=== PATIENT | female | born 1995 | race Caucasian/White ===

== ENCOUNTER 2017-02-25 13:50 | Emergency (ER) | payer OTHER ==
[~2017-02-25] VITALS: Ht 157.5 cm; Wt 118.4 kg
[2017-02-25] MEDS ORDERED: PRENTAB55 PO (14:11)
[2017-02-25] MEDS ORDERED: ONDANSETRON 4 MG ORAL DISINTEGRATING TAB (S0181) PO ONE (15:15)
[2017-02-25] MEDS ORDERED: ACETAMINOPHEN TAB 650MG DOSE (2X325MG) PO ONE (15:15)
[2017-02-25 15:57] LABS: BASO % 0.6 % (0.0-1.0); EOS # 0.1 K/mm3 (0.0-0.50); EOS % 1.9 % (0.0-3.0); LARGE UNSTAINED CELL # 0.1 K/mm3 (0.0-0.4); LARGE UNSTAINED CELL % 1.5 % (0.0-4.0); LYMPH # 2.2 K/mm3 (1.5-6.5); LYMPH % 30.3 % (24.0-44.0); MEAN CORPUSCULAR HEMOGLOBIN 28.1 pg (27.0-33.0); MEAN CORPUSCULAR HGB CONC 32.9 g/dl (32.0-36.5); MEAN CORPUSCULAR VOLUME 85.3 fl (80.0-96.0); MONO # 0.4 K/mm3 (0.0-0.8); MONO % 5.3 % (0.0-5.0); NEUTROPHILS # 4.4 K/mm3 (1.8-7.7); NEUTROPHILS % 60.4 % (36.0-66.0); PLATELET COUNT, AUTOMATED 282 k/mm3 (150-450); RED CELL DISTRIBUTION WIDTH 12.5 % (11.5-14.5); WHITE BLOOD COUNT 7.2 K/mm3 (4.0-10.0)
[2017-02-25 17:02] VITALS: BP 141/83
--- NOTE | 2017-02-26 08:52 | REP ---
OB ULTRASOUND: HISTORY: Cramping. Within the uterus, there is an anechoic structure with increased echo surrounding it consistent with a decidual reaction. Within the gestational sac there is echogenic material consistent with a pole, the mean crown rump length measurement of which is consistent with a 5 week 6 day gestational age. Based on that the estimated date of delivery is 10/22/2017. Doppler interrogation of the heart shows a heart rate of 120 beats per minute. Evaluation of the maternal adnexal spaces show no gross abnormalities. No chorionic or subchorionic abnormality was noted. IMPRESSION: Early OB ultrasound as described above. Signed by Kalyan Orourke DO 02/26/2017 09:58 A
== END 2017-02-25 17:04 | disposition home or self-care (01) ==
LOC: M ED 14:59
DX: O99.89 Other specified diseases and conditions complicating pregnancy, childbirth and the puerperium (principal); R10.9 Unspecified abdominal pain; Z3A.00 Weeks of gestation of pregnancy not specified
CPT/HCPCS: 76801; 76817; 81001; 84702; 85025; 86850; 86900; 86901; 87210; 87491; 87591; 93976; 99282; G0463

== ENCOUNTER → 2017-02-25 | Outpatient (REF) | payer OTHER ==
[~2017-02-25] MED LIST: PRENTAB55 PO
== END ==
LOC: M SFHCLERA 12:56
PROVIDERS: ATTEND Nurse Practitioner Family
DX: R35.8 Other polyuria (principal)

== ENCOUNTER → 2017-03-13 | Outpatient (CLI) | payer OTHER ==
[2017-03-13 15:07] LABS: BASO % 0.5 % (0.0-1.0); EOS # 0.1 K/mm3 (0.0-0.50); EOS % 1.4 % (0.0-3.0); LARGE UNSTAINED CELL # 0.1 K/mm3 (0.0-0.4); LARGE UNSTAINED CELL % 1.5 % (0.0-4.0); LYMPH # 2.2 K/mm3 (1.5-6.5); LYMPH % 31.5 % (24.0-44.0); MEAN CORPUSCULAR HEMOGLOBIN 28.5 pg (27.0-33.0); MEAN CORPUSCULAR HGB CONC 33.6 g/dl (32.0-36.5); MEAN CORPUSCULAR VOLUME 84.8 fl (80.0-96.0); MONO # 0.4 K/mm3 (0.0-0.8); MONO % 5.8 % (0.0-5.0); NEUTROPHILS # 4.1 K/mm3 (1.8-7.7); NEUTROPHILS % 59.4 % (36.0-66.0); PLATELET COUNT, AUTOMATED 274 k/mm3 (150-450); RED CELL DISTRIBUTION WIDTH 12.7 % (11.5-14.5)
[2017-03-14 08:34] LABS: ALT/SGPT 31 U/L (12-78); AST/SGOT 19 U/L (15-37); BILIRUBIN,TOTAL 0.2 MG/DL (0.2-1.0); CREATININE FOR GFR 0.72 MG/DL (0.55-1.02); URIC ACID 4.9 MG/DL (2.6-6.0)
[2017-03-14 08:35] LABS: HBsAg Prenatal NEGATIVE (NEGATIVE)
== END ==
LOC: M LRY 11:30
PROVIDERS: ATTEND Advanced Practice Midwife
DX: Z34.81 Encounter for supervision of other normal pregnancy, first trimester (principal)

== ENCOUNTER 2017-04-02 19:04 | Emergency (ER) | payer OTHER ==
[~2017-04-02] VITALS: Ht 157.5 cm; Wt 116.6 kg
[2017-04-02 20:21] LABS: BASO % 0.5 % (0.0-1.0); EOS # 0.2 K/mm3 (0.0-0.50); EOS % 2.2 % (0.0-3.0); LARGE UNSTAINED CELL # 0.2 K/mm3 (0.0-0.4); LARGE UNSTAINED CELL % 1.8 % (0.0-4.0); LYMPH % 33.6 % (24.0-44.0); MEAN CORPUSCULAR HEMOGLOBIN 28.5 pg (27.0-33.0); MEAN CORPUSCULAR VOLUME 81.3 fl (80.0-96.0); MONO # 0.3 K/mm3 (0.0-0.8); NEUTROPHILS # 4.8 K/mm3 (1.8-7.7); NEUTROPHILS % 57.8 % (36.0-66.0); PLATELET COUNT, AUTOMATED 268 k/mm3 (150-450); RED CELL DISTRIBUTION WIDTH 12.7 % (11.5-14.5); WHITE BLOOD COUNT 8.4 K/mm3 (4.0-10.0)
[2017-04-02] MEDS ORDERED: RHOGAM 300 MCG (1500 IU) INJ (J2790) IM SCH (21:15)
--- NOTE | 2017-04-02 21:30 | REPUSA ---
CLINICAL HISTORY: Abdominal pain. TECHNIQUE: Realtime sonographic images were obtained in multiple projections. COMMENTS: A single, living, intrauterine was identified utilizing transabdominal imaging technique. The estimated gestational age is 11 weeks 0 days, based on a pole measurement of 42 mm. The fe chanelle heart rate was documented at 158 bpm. Based on today's examination, the estimated date of delive ry is 10/22/2017. A small subchorionic hemorrhage was identified measuring 2.2 x 0.8 x 3.4 cm. Evaluation of the maternal adnexal and cul-de-sac regions revealed a right ovarian cyst, likely a cor pus luteum measuring 2.8 x 2.1 x 2.4 cm. Although a complete anatomical survey is not possible at this gestational age, no gross anomali es were identified. A repeat scan at 19-20 weeks for a detailed anatomical survey is recommended. IMPRESSION: 1. Single, live, intrauterine gestation, 11 weeks 0 days based on today's crown/rump length. 2. Small subchorionic hemorrhage. 3. Based on today's examination, the estimated date of delivery is 10/22/2017. Thank you for your kind referral of this patient. We appreciate the opportunity to participate in thi s patient's care.
[2017-04-02 23:03] VITALS: BP 145/91
== END 2017-04-02 23:25 | disposition home or self-care (01) ==
LOC: M ED 20:13
DX: O20.0 Threatened abortion (principal); O20.8 Other hemorrhage in early pregnancy; Z87.891 Personal history of nicotine dependence; Z3A.11 11 weeks gestation of pregnancy; Z79.899 Other long term (current) drug therapy
CPT/HCPCS: 36415; 76801; 84702; 85025; 86850; 86900; 86901; 93976; 96372; 99283; J2790

== ENCOUNTER 2017-04-09 22:49 | Emergency (ER) | payer OTHER ==
[~2017-04-09] VITALS: Ht 157.5 cm; Wt 118.0 kg
[2017-04-10 01:17] LABS: BASO % 0.4 % (0.0-1.0); EOS # 0.1 K/mm3 (0.0-0.50); EOS % 1.5 % (0.0-3.0); LARGE UNSTAINED CELL # 0.1 K/mm3 (0.0-0.4); LARGE UNSTAINED CELL % 1.7 % (0.0-4.0); LYMPH # 2.3 K/mm3 (1.5-6.5); LYMPH % 32.7 % (24.0-44.0); MEAN CORPUSCULAR HEMOGLOBIN 27.9 pg (27.0-33.0); MEAN CORPUSCULAR HGB CONC 33.8 g/dl (32.0-36.5); MEAN CORPUSCULAR VOLUME 82.4 fl (80.0-96.0); MONO # 0.4 K/mm3 (0.0-0.8); MONO % 5.8 % (0.0-5.0); PLATELET COUNT, AUTOMATED 258 k/mm3 (150-450); RED CELL DISTRIBUTION WIDTH 12.5 % (11.5-14.5); WHITE BLOOD COUNT 6.9 K/mm3 (4.0-10.0)
--- NOTE | 2017-04-10 02:40 | REPUSA ---
CLINICAL HISTORY: Vaginal bleeding. TECHNIQUE: Transabdominal ultrasound of the pelvis was performed. FINDINGS: Single, live intrauterine gestation. The estimated gestation age is 12 weeks and 3 days. [place]-rump length 5.9 cm. heart rate 162 beats per minute. Anterior placenta. No evidence of placental previa. Right corpus lithium cyst measuring 2.7x2.5x2 cm. Estimated delivery date on 10/20/2017. IMPRESSION: Single, live intrauterine gestation.
[2017-04-10 04:24] VITALS: BP 127/79
== END 2017-04-10 04:26 | disposition home or self-care (01) ==
LOC: M ED 23:55
DX: O20.0 Threatened abortion (principal); O26.892 Other specified pregnancy related conditions, second trimester; N83.11 Corpus luteum cyst of right ovary; Z79.899 Other long term (current) drug therapy; Z3A.12 12 weeks gestation of pregnancy

== ENCOUNTER 2017-04-17 17:55 | Emergency (ER) | payer OTHER ==
[~2017-04-17] VITALS: Ht 157.5 cm; Wt 115.7 kg
[2017-04-17 19:09] LABS: MEAN CORPUSCULAR HGB CONC 34.1 g/dl (32.0-36.5); MEAN CORPUSCULAR VOLUME 82.1 fl (80.0-96.0); RED CELL DISTRIBUTION WIDTH 12.8 % (11.5-14.5); WHITE BLOOD COUNT 8.1 K/mm3 (4.0-10.0)
--- NOTE | 2017-04-17 19:44 | REP ---
Clinical: Pelvic pain and vaginal spotting. Dating and viability. Technique: Transabdominal first trimester obstetrical ultrasound with color Doppler evaluation. Comparison: 04/10/2017 Findings: Single live early intrauterine is appreciated. [place]-rump length of 6.3 cm corresponds to 12 weeks 5 days gestational age with estimated date of delivery 10/25/2017. heart rate equals 153 beats per minute. No gross abnormalities are identified. Anterior grade 0 placenta. Normal maternal right ovary. Right ovary measures 4.4 x 4.1 x 2.5 cm with 3.1 cm corpus luteal cyst; RI equal 0.54. Impression: Single live early intrauterine at 12 weeks 5 days gestational age. Complete anatomical assessment should be performed and 19-20 weeks. Signed by Olivier Baugh MD 04/17/2017 07:36 P
[2017-04-17 19:57] VITALS: BP 130/86
== END 2017-04-17 20:06 | disposition home or self-care (01) ==
LOC: M ED 18:50
DX: O20.9 Hemorrhage in early pregnancy, unspecified (principal); O99.211 Obesity complicating pregnancy, first trimester; E66.01 Morbid (severe) obesity due to excess calories; Z3A.13 13 weeks gestation of pregnancy

== ENCOUNTER → 2018-01-08 | Outpatient (REF) | payer OTHER | LOC: M LAB REF 16:55 | DX: R35.0 Frequency of micturition (principal) | CPT/HCPCS: 87086 ==

== ENCOUNTER → 2018-01-08 | Outpatient (CLI) | payer OTHER ==
[2018-01-08 21:06] LABS: HEMATOCRIT 40.4 % (36.0-47.0); HEMOGLOBIN 13.4 g/dl (12.0-16.0); MEAN CORPUSCULAR HEMOGLOBIN 27.4 pg (27.0-33.0); MEAN CORPUSCULAR HGB CONC 33.2 g/dl (32.0-36.5); MEAN CORPUSCULAR VOLUME 82.6 fl (80.0-96.0); PLATELET COUNT, AUTOMATED 251 10^3/uL (150-450); RED BLOOD COUNT 4.89 10^6/uL (4.00-5.40)
[2018-01-08 21:28] LABS: FOLLICLE STIMULATING HORMONE 3.3 mIU/mL; LUTEINIZING HORMONE 4.9 mIU/mL; TOTAL 25(OH) VITAMIN D 19.3 NG/ML (30.0-100.0)
[2018-01-08 21:31] LABS: ALBUMIN 3.7 GM/DL (3.2-5.2); ALBUMIN/GLOBULIN RATIO 1.09 (1.00-1.93); ALKALINE PHOSPHATASE 71 U/L (45-117); ALT/SGPT 30 U/L (12-78); ANION GAP 6 MEQ/L (8-16); AST/SGOT 24 U/L (7-37); BILIRUBIN,TOTAL 0.4 MG/DL (0.2-1.0); BLOOD UREA NITROGEN 12 MG/DL (7-18); CALCIUM LEVEL 8.8 MG/DL (8.5-10.1); CARBON DIOXIDE LEVEL 28 MEQ/L (21-32); CHLORIDE LEVEL 107 MEQ/L (98-107); CREATININE FOR GFR 0.75 MG/DL (0.55-1.30); GLUCOSE, FASTING 85 MG/DL (70-100); POTASSIUM SERUM 3.9 MEQ/L (3.5-5.1); SODIUM LEVEL 141 MEQ/L (136-145); TESTOSTERONE 45 NG/DL (14-76); TOTAL PROTEIN 7.1 GM/DL (6.4-8.2)
[2018-01-08 22:01] LABS: ESTIMATED AVERAGE GLUCOSE 103 MG/DL (60-110); HEMOGLOBIN A1c 5.2 %
== END ==
LOC: M LRY 14:47
DX: N92.6 Irregular menstruation, unspecified (principal); R03.0 Elevated blood-pressure reading, without diagnosis of hypertension; F32.1 Major depressive disorder, single episode, moderate